=== PATIENT | female | born 1970 | race African-American/Black ===

== ENCOUNTER 2017-05-09 12:46 | Inpatient (IN) | payer MEDICAID ==
[~2017-05-09] VITALS: Ht 152.4 cm; Wt 63.5 kg
[~2017-05-09 12:46] MED LIST: AMLO5TAB88 PO; ATEN-42 PO; IOHEXOL-300 100 ML BOTTLE ONE; SEE MED SHEET; SODIUM CHLORIDE 0.9% 10ML VIAL ONE
[2017-05-09] MEDS ORDERED: SODIUM CHLORIDE 0.9% 1,000 ML IV ONE (13:28)
[2017-05-09] MEDS ORDERED: KETOROLAC 30MG/ML VIAL IV STA (13:28)
[2017-05-09] MEDS ORDERED: MORPHINE SULFATE 4 MG/ML CPJ (NOT FOR IM USE) IV STA (13:28)
[2017-05-09] MEDS ORDERED: ONDANSETRON HCL 4MG/2ML VIAL IV STA (13:28)
[2017-05-09 14:25] LABS: BASOPHILS % 0.8 % (0.0-2.0); EOSINOPHILS % 0.2 % (0.0-5.0); HEMATOCRIT. 40.9 % (36.0-48.0); HEMOGLOBIN. 13.6 g/dL (12.0-16.0); MEAN CORPUSCULAR HEMOGLOBIN 28.2 pg (28.0-32.0); MEAN PLATELET VOLUME 7.9 fl (7.4-10.4); MONOCYTES % 4.1 % (2.0-8.0); NEUTROPHILS % 76.9 % (40.0-76.0); PLATELET 193 x1000/uL (130-400); RED BLOOD CELL COUNT 4.81 mill/uL (4.2-5.4); RED CELL DISTRIBUTION WIDTH 15.1 % (11.6-14.6)
[2017-05-09 14:27] LABS: CARBON DIOXIDE 26 mEq/L (21-32); CHLORIDE 105 mEq/L (98-107)
[2017-05-09 14:41] LABS: CLARITY URINE CLEAR (CLEAR); COLOR URINE YELLOW (YELLOW); GLUCOSE URINE NEGATIVE (NEGATIVE); KETONES URINE TRACE (NEGATIVE); LEUKOCYTE ESTERASE URINE NEGATIVE (NEGATIVE); NITRITE URINE NEGATIVE (NEGATIVE); OCCULT BLOOD URINE 1+ (NEGATIVE); PROTEIN URINE NEGATIVE (NEGATIVE); SPECIFIC GRAVITY URINE 1.013 (1.005-1.030); UROBILINOGEN URINE 0.2 E.U./dL (0.2-1.0)
[2017-05-09] MEDS ORDERED: MORPHINE SULFATE 4 MG/ML CPJ (NOT FOR IM USE) IV ONE (16:00)
[2017-05-09 20:00] VITALS: BP 134/73
[2017-05-09 21:07] VITALS: BP 134/73
[2017-05-09] MEDS ORDERED: MIRT15TA6 PO (21:21)
[2017-05-09] MEDS ORDERED: DOCUSATE SODIUM 100MG CAPSULE PO PRN (21:30)
[2017-05-09] MEDS ORDERED: ACETAMINOPHEN 325MG TABLET PO PRN (21:30)
[2017-05-09] MEDS ORDERED: ONDANSETRON HCL 4MG/2ML VIAL IV PRN (21:30)
[2017-05-09] MEDS ORDERED: CLONIDINE 0.1MG TABLET PO PRN (21:30)
[2017-05-09] MEDS ORDERED: HYDROCODONE/ACETAMINOPHEN 5/325MG TABLET PO PRN (21:30)
[2017-05-09] MEDS ORDERED: IPRATROPIUM/ALBUTEROL 0.5-3(2.5)MG/3ML NEB INH PRN (21:30)
[2017-05-09] MEDS ORDERED: MAGNESIUM/ALUMINUM HYDROXIDE/SIMETHICONE 30ML UDC PO PRN (21:30)
[2017-05-09] MEDS: MORPHINE SULFATE 2 MG/ML CPJ (NOT FOR IM USE) IV PRN (22:47)
[2017-05-09 23:31] LABS: CARBON DIOXIDE 28 mEq/L (21-32); CHLORIDE 104 mEq/L (98-107); CREATINE KINASE 484 IU/L (26-192); CREATINE KINASE MB FRACTION 2.5 ng/mL (0.5-3.6); TROPONIN I < 0.02 ng/mL (0.00-0.04)
[2017-05-10] VITALS: BP 114/60
[2017-05-10 04:04] VITALS: BP 129/78
[2017-05-10] MEDS: MORPHINE SULFATE 2 MG/ML CPJ (NOT FOR IM USE) IV PRN (04:17)
[2017-05-10 07:19] LABS: CREATINE KINASE 457 IU/L (26-192); HDL CHOLESTEROL 63 mg/dL (40-59); LDL CHOLESTEROL 129 mg/dL (5-100)
[2017-05-10 07:25] LABS: TROPONIN I < 0.02 ng/mL (0.00-0.04)
[2017-05-10 07:52] LABS: *AMPHETAMINES SCREEN URINE NEGATIVE (NEGATIVE); *BARBITURATES SCREEN URINE NEGATIVE (NEGATIVE); *BENZODIAZEPINES SCREEN URINE NEGATIVE (NEGATIVE); *COCAINE SCREEN URINE NEGATIVE (NEGATIVE); METHADONE URINE SCREEN NEGATIVE (NEGATIVE); PHENCYCLIDINE URINE SCREEN NEGATIVE (NEGATIVE)
[2017-05-10 07:56] LABS: CANNABINOID URINE SCREEN PRESUMTIVE POSITIVE (NEGATIVE); OPIATES URINE SCREEN PRESUMTIVE POSITIVE (NEGATIVE)
[2017-05-10 08:06] VITALS: BP 137/76
[2017-05-10] MEDS ORDERED: ENOXAPARIN 40MG/0.4ML SYR SUBCUT SCH (09:00)
[2017-05-10 12:00] VITALS: BP 115/71
[2017-05-10] MEDS ORDERED: LACTULOSE 20G/30ML UDC PO NR (12:15)
[2017-05-10 14:21] VITALS: BP 115/76
[2017-05-10] MEDS ORDERED: ATORVASTATIN CALCIUM 20MG TABLET PO SCH (21:00)
== END 2017-05-10 14:30 | disposition home or self-care (01) | DRG 48 ==
LOC: ER 13:22 → 6EST 16:28 → EDBEDREQ 16:30 → ENRESERV 17:37
PROVIDERS: ADMIT Internal Medicine; ATTEND Internal Medicine
DX: M54.10 Radiculopathy, site unspecified (principal); I10 Essential (primary) hypertension; E78.5 Hyperlipidemia, unspecified; F17.200 Nicotine dependence, unspecified, uncomplicated; K59.00 Constipation, unspecified
CPT/HCPCS: 36415; 72100; 74176; 74177; 80048; 80053; 80061; 80305; 81001; 81025; 82550; 82553; 83690; 84443; 84484; 85025; 87086; 93970; 96374; 96375; 96376; 99285; A4216; C1893; J1650; J1885; J2270; J2405; J7030; Q9967